=== PATIENT | male | born 1985 | race Caucasian/White ===

== ENCOUNTER 2016-09-22 11:23 | Observation (INO) | payer SELFPAY ==
--- NOTE | 2016-09-22 11:42 | EDPHY ---
H & P Time Seen by Provider: 09/22/16 11:38 HPI/ROS: CHIEF COMPLAINT: Abdominal pain HISTORY OF PRESENT ILLNESS: This patient is a 31-year-old male who presents to the Emergency Department complaining of progressively worsening RUQ abdominal pain beginning two days ago. He reports persistent watery, brown diarrhea and associated fatigue since time of presentation. He describes the pain as severe, constant and non-radiating with no identified exacerbating or alleviating factors. He reports mild subjective fever and increased urinary frequency. He denies nausea, vomiting, hematuria, or dysuria. No history of abdominal surgeries. REVIEW OF SYSTEMS: Constitutional: +fatigue, no fever, no chills Eyes: No visual changes ENT: No sore throat Respiratory: No cough, no shortness of breath Cardiac: No chest pain Gastrointestinal: No nausea, no vomiting, +RUQ abdominal pain, +diarrhea Genitourinary: No hematuria, no dysuria Musculoskeletal: No leg pain or swelling Skin: No rash Neurological: No headache, no weakness Psychiatric: No depression Past Medical/Surgical History: Denies. No PCP. Social History: No tobacco use. Smokes marijuana. "Can't remember the last time I had a drink." No illicit drug use. Smoking Status: Never smoked Physical Exam: General Appearance: Alert, appears in pain Eyes: Pupils equal and round, no conjunctival pallor or injection ENT, Mouth: Mucous membranes moist Neck: Normal inspection Respiratory: Lungs are clear to auscultation Cardiovascular: Regular rate and rhythm Gastrointestinal: Diffuse abdominal tenderness, especially to the RUQ, with rebound tenderness and guarding Neurological: A&O, nonfocal, normal gait Skin: Warm and dry, no rash Extremities: Nontender, no pedal edema Psychiatric: Mood and affect normal Constitutional: Initial Vital Signs Temperature (C) 36.7 C 09/22/16 11:25 Heart Rate 89 09/22/16 11:25 Respiratory Rate 16 09/22/16 11:25 Blood Pressure 100/71 09/22/16 11:25 O2 Sat (%) 97 09/22/16 11:25 O2 Delivery Mode Room Air Allergies/Adverse Reactions: No Known Allergies Allergy (Unverified 09/22/16 11:27) Home Medications: Medication Instructions Recorded Herbals/Supplements -Info Only 1 ea PO DAILY 09/22/16 Multivitamins [Multivitamin (*)] 1 each PO DAILY 09/22/16 Ibuprofen 400 mg PO Q6 PRN #1 tablet 09/23/16 traMADol [Ultram 50 mg (*)] 50 mg PO Q6HRS #14 tab 09/23/16 Medical Decision Making - Diagnostics Imaging Results: CT abd/pelvis ready by Dr. Andrade: mesenteric edema, splenomegaly ED Course/Re-evaluation: Normally healthy 31-year-old male presents with complaints of RUQ abdominal pain and diarrhea gradually worsening for the past two days. He appears in pain at the time of his exam. He has an acute abdomen with diffuse tenderness, most severe to the right upper quadrant, with rebound tenderness and guarding. Will proceed with labs and CT of the abdomen. IV established. 1L IV NS, 4mg IV Zofran, and 16.3mg IV Ketamine administered for nausea and pain control. Feels better UA obtained and is normal. Labs obtained and are unremarkable. WBC is not elevated. Lipase and LFTs are all within normal ranges. Pain has returned. Morphine IV ordered. 1302: CT reveals mesenteric edema and splenomegaly per Dr. Andrade. CT scan results discussed with the patient. He continues to have severe pain and feels that he needs admission for pain control. Abdominal exam remains unchanged. The hospitalist service was consulted for admission. Dr. Bateman, hospitalist, accepts admission to med/surg. Differential Diagnosis: Differential diagnosis includes though it is not limited to appendicitis, cholecystitis, diverticulitis, pyelonephritis, bowel perforation, small bowel obstruction. - Data Points Laboratory Results: Laboratory Results 09/22/16 11:54 09/22/16 11:54 Microbiology Results: MICROBIOLOGY 09/22/16 09:10 Stool Gastrointestinal Tract Panel (PCR) - Final No Organism Detected Medications Given: Discontinued Medications Diphenhydramine HCl (Benadryl Injection) 25 mg IVP EDNOW ONE Stop: 09/22/16 13:49 Last Admin: 09/22/16 14:17 Dose: 25 mg Sodium Chloride (Ns) 1,000 mls @ 0 mls/hr IV ONCE ONE; Wide Open PRN Reason: Protocol Stop: 09/22/16 11:47 Last Admin: 09/22/16 11:55 Dose: 1,000 mls Ketamine HCl (Ketamine) 16.3 mg 0.2 mg/kg (16.3 mg) IVP EDNOW ONE Stop: 09/22/16 11:48 Last Admin: 09/22/16 11:56 Dose: 16.3 mg Metoclopramide HCl (Reglan Injection) 10 mg IVP EDNOW ONE Stop: 09/22/16 13:49 Last Admin: 09/22/16 14:17 Dose: 10 mg Morphine Sulfate (Morphine) 4 mg IVP Q1H PRN PRN Reason: Pain, Severe Unable to Take PO Stop: 09/22/16 14:54 Last Admin: 09/22/16 13:00 Dose: 4 mg Ondansetron HCl (Zofran) 4 mg IVP EDNOW ONE Stop: 09/22/16 11:49 Last Admin: 09/22/16 11:56 Dose: 4 mg Departure - Departure Disposition: [facility] Inpatient Acute Clinical Impression: mesenteric edema Abdominal pain Qualifiers: Abdominal location: generalized Qualified Code(s): R10.84 - Generalized abdominal pain Condition: Fair Report Scribed for: Lillie Boyd Report Scribed by: Rayna Mcguire Date of Report: 09/22/16 Time of Report: 11:40 Physician Review and Approval Statement: 09/22/16 11:40 Portions of this note were transcribed by a electromedical equipment technician. I personally performed a history, physical exam, medical decision making, and confirmed accuracy of information the transcribed note.
[2016-09-22] MEDS ORDERED: NS 1,000 ML IV ONE (11:46)
[2016-09-22] MEDS ORDERED: KETAMINE 100 MG/10 ML SYR IVP ONE (11:47)
[2016-09-22] MEDS ORDERED: ONDANSETRON 4 MG/2 ML VIAL IVP ONE (11:48)
[2016-09-22] MEDS ORDERED: IOPAMIDOL (ISOVUE-300) 100 ML BTL ONE (11:53)
[2016-09-22 11:55] LABS: COLOR YELLOW; LEUKOCYTE ESTERASE,URINE NEGATIVE (NEGATIVE); NITRITE,URINE NEGATIVE (NEGATIVE)
[2016-09-22 12:11] LABS: % IMMATURE GRANULYOCYTES 2.6 % (0.0-1.1); ABSOLUTE IMMATURE GRANULOCYTES 0.19 10^3/uL (0.00-0.10); ADD DIFF? NO; ADD MORPH? NO; ADD SCAN? NO; ATYPICAL LYMPHOCYTE FLAG 80 (0-99); FRAGMENT RBC FLAG 0 (0-99); HEMATOCRIT 44.5 % (40.0-51.0); HEMOGLOBIN 15.2 g/dL (13.7-17.5); LEFT SHIFT FLG 80 (0-99); LIPEMIA HEMOLYSIS FLAG 90 (0-99); MEAN CELL HEMOGLOBIN CONCENTR. 34.2 g/dL (32.4-36.7); MEAN CELL VOLUME 87.9 fL (81.5-99.8); PLATELET CLUMPS FLAG 0 (0-99); PLATELET COUNT 232 10^3/uL (150-400); RED BLOOD CELL COUNT 5.06 10^6/uL (4.40-6.38); RED CELL DISTRIBUTION WIDTH 13.2 % (11.5-15.2)
[2016-09-22 12:28] LABS: ALANINE AMINOTRANSFERASE 55 IU/L (21-72); ALBUMIN 4.4 g/dL (3.5-5.0); ALKALINE PHOSPHATASE 53 IU/L (38-126); ANION GAP 13 mEq/L (8-16); ASPARTATE AMINOTRANSFERASE 33 IU/L (17-59); BILIRUBIN,TOTAL 0.8 mg/dL (0.1-1.4); BILIRUBIN-CONJUGATED 0.5 mg/dL (0.0-0.5); BILIRUBIN-UNCONJUGATED 0.3 mg/dL (0.0-1.1); CALCIUM 9.6 mg/dL (8.5-10.4); CARBON DIOXIDE 24 mEq/l (22-31); CHLORIDE 102 mEq/L (97-110); CREATININE 0.9 mg/dL (0.7-1.3); GLOMERULAR FILTRATION RATE > 60; GLUCOSE 116 mg/dL (70-100); POTASSIUM 3.8 mEq/L (3.5-5.2); SODIUM 139 mEq/L (134-144); TOTAL PROTEIN 7.3 g/dL (6.3-8.2)
[2016-09-22] MEDS ORDERED: METOCLOPRAMIDE 10 MG/2 ML VIAL IVP ONE (13:48)
[2016-09-22] MEDS ORDERED: ONDANSETRON 4 MG/2 ML VIAL IVP PRN (15:00)
[2016-09-22] MEDS ORDERED: ZOLPIDEM TARTRATE 5 MG TAB PO PRN (15:00)
[2016-09-22] MEDS ORDERED: ACETAMINOPHEN 325 MG TAB PO PRN (15:00)
[2016-09-22] MEDS ORDERED: ONDANSETRON DISINTEGRATING 4 MG TAB PO PRN (15:00)
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
[2016-09-22 16:00] LABS: COLOR PALE YELLOW; LEUKOCYTE ESTERASE,URINE NEGATIVE (NEGATIVE); NITRITE,URINE NEGATIVE (NEGATIVE)
[2016-09-22] MEDS: traMADol 50 MG TAB PO SCH (16:13)
[2016-09-22] MEDS: KETOROLAC 30 MG/1 ML SDV IVP PRN ×2 (16:14→22:14)
[2016-09-22] MEDS: NS 1,000 ML IV SCH ×2 (16:14→21:59)
[2016-09-23] MEDS: traMADol 50 MG TAB PO SCH ×4 (00:24→18:09)
[2016-09-23 05:42] LABS: % IMMATURE GRANULYOCYTES 2.8 % (0.0-1.1); ABSOLUTE IMMATURE GRANULOCYTES 0.15 10^3/uL (0.00-0.10); ADD DIFF? NO; ADD MORPH? NO; ADD SCAN? YES; ATYPICAL LYMPHOCYTE FLAG 70 (0-99); FRAGMENT RBC FLAG 0 (0-99); HEMATOCRIT 40.7 % (40.0-51.0); HEMOGLOBIN 13.9 g/dL (13.7-17.5); LEFT SHIFT FLG 30 (0-99); LIPEMIA HEMOLYSIS FLAG 90 (0-99); MEAN CELL HEMOGLOBIN 30.1 pg (27.9-34.1); MEAN CELL HEMOGLOBIN CONCENTR. 34.2 g/dL (32.4-36.7); MEAN CELL VOLUME 88.1 fL (81.5-99.8); MEAN PLATELET VOLUME 9.9 fL (8.7-11.7); PLATELET CLUMPS FLAG 0 (0-99); PLATELET COUNT 194 10^3/uL (150-400); RED BLOOD CELL COUNT 4.62 10^6/uL (4.40-6.38); RED CELL DISTRIBUTION WIDTH 13.2 % (11.5-15.2)
[2016-09-23 05:52] LABS: ALANINE AMINOTRANSFERASE 46 IU/L (21-72); ALBUMIN 3.5 g/dL (3.5-5.0); ALKALINE PHOSPHATASE 49 IU/L (38-126); ANION GAP 9 mEq/L (8-16); ASPARTATE AMINOTRANSFERASE 30 IU/L (17-59); BILIRUBIN,TOTAL 0.9 mg/dL (0.1-1.4); CALCIUM 8.9 mg/dL (8.5-10.4); CARBON DIOXIDE 22 mEq/l (22-31); CHLORIDE 107 mEq/L (97-110); CREATININE 0.8 mg/dL (0.7-1.3); GLOMERULAR FILTRATION RATE > 60; GLUCOSE 79 mg/dL (70-100); POTASSIUM 4.4 mEq/L (3.5-5.2); SODIUM 138 mEq/L (134-144)
[2016-09-23 06:10] LABS: SCAN NEGATIVE
[2016-09-23] MEDS: KETOROLAC 30 MG/1 ML SDV IVP PRN ×2 (11:39→18:10)
[2016-09-23] MEDS: NS 1,000 ML IV SCH (11:40)
[2016-09-23 16:27] VITALS: BP 133/86; PULSE 71; RESP 16; TEMP 98.1; O2SAT 96
--- NOTE | 2016-09-23 17:09 | PDDCSUM ---
Discharge Summary Discharge Summary: DISCHARGE DIAGNOSES: -Acute abdominal pain diffuse in all quadrants -diarrheal illness of uncertain etiology PROCEDURES: CT scan of abdomen pelvis HOSPITAL COURSE SUMMARY: This patient presented to the hospital with diffuse abdominal pain and diarrhea. There is no fever no high white blood cell count. He was not having nausea vomiting, rashes, joint symptoms, mucosal findings. CT scan of the abdomen was done and was fairly nonspecific. The radiologist mentioned finding of "mild misting" of mesenteric fat nonspecific pattern. There were no other definite specific abnormalities. There is no sign of obstruction. On my review of images there is some loops of fluid-filled small bowel but these were not enlarged in diameter did not appear inflamed. Stool studies were obtained and GI infectious pathogen panel study performed which revealed no evidence of any particular organisms. This is a wide ranging panel covering both viral, bacterial, and fungal organisms. The patient was treated conservatively with IV fluids, analgesic pump. he recovered quite nicely and at this point his pain is mostly resolved. The throughout his hospital stay there has been no fever. He has had normal abdominal exams and has been eating without difficulty throughout this visit. His white blood cell count remains normal. There is no anemia or other laboratory test abnormality. The cause of his syndrome is uncertain. Is felt to most likely represent unidentified infection. However he does have a family history of Crohn's disease and at this time it certainly could be possible that this represents some early Crohn's though there was no specific finding to support that other than his symptoms. Is not recommended that he have endoscopy at this time but I did discuss with him that if his symptoms do not eventually resolve he should visit with the project coordinator rn to consider what further evaluations he might have that could be helpful including possibly endoscopy. PENDING TEST RESULTS: None MEDICATION CHANGES: Tramadol 50 mg 20. Tablets were prescribed as needed for pain FOLLOW-UP PLAN: If his symptoms resolve he will not need any further follow-up. If the symptoms do not resolve it is recommended that he follow up with a project coordinator rn. He is visiting here from [place] and have given him Dr. Hayes name and number who was aware of the patient in case he needs help here. Otherwise he can follow up with a project coordinator rn as he rushed back home to [place]. Greater than 35 minutes bedside and care coordination time today
== END 2016-09-23 18:30 | disposition home or self-care (01) ==
LOC: F1N 14:44
PROVIDERS: ADMIT Internal Medicine; ATTEND Internal Medicine
DX: R10.11 Right upper quadrant pain (principal); R19.7 Diarrhea, unspecified; R53.83 Other fatigue; R93.3 Abnormal findings on diagnostic imaging of other parts of digestive tract; R16.1 Splenomegaly, not elsewhere classified; Z83.79 Family history of other diseases of the digestive system
CPT/HCPCS: 96374; G0378; J1200; J1885; J2405; J2765; Q9967